=== PATIENT | female | born 1945 ===

== ENCOUNTER 2018-03-16 08:16 | Emergency (ER) | payer MEDICARE ==
[2018-03-16 08:30] VITALS: BMI 25.7
--- NOTE | 2018-03-16 09:02 | C.PDOC ---
History Of Present Illness 72 y/o female pt presents to the ER c/o rectal irritation from frequent diarrhea. Associated sx includes nausea, vomiting and diarrhea last night but has now improved. Pt reports she initially vomited, but now feels better "once food came out". Pt says she is now able to tolerate PO and denies abdominal pain, bloating and fever. NVD SINCE LAST NIGHT NOW IMPROVED. PS NOW TOLERATING PO, CO RECTAL IRRITATION FROM THE FREQ DIARRHEA. INITIALLY VOMITED FOOD, NOW CLEAR. PS FELT MUCH BETTER ONCE FOOD CAME OUT. NO ABD PAIN, BLOATING, FEVER. EXAM NAD SOFT NT ND NO R/G REMAINDER NEG Time Seen by Provider: 03/16/18 08:37 Chief Complaint (Nursing): GI Problem History Per: Patient History/Exam Limitations: no limitations Onset/Duration Of Symptoms: Days (x1) Current Symptoms Are (Timing): Better Past Medical History Reviewed: Historical Data, Nursing Documentation, Vital Signs Vital Signs: Last Vital Signs Temp 98.0 F 03/16/18 08:40 Pulse 118 H 03/16/18 08:40 Resp 20 03/16/18 08:40 BP 152/90 H 03/16/18 08:40 Pulse Ox 97 03/16/18 08:40 - Medical History PMH: Depression, HTN, Hypercholesterolemia Family History: States: No Known Family Hx - Social History Hx Alcohol Use: No Hx Substance Use: No Review Of Systems Except As Marked, All Systems Reviewed And Found Negative. Constitutional: Negative for: Fever, Other (bloating ) Gastrointestinal: Positive for: Nausea (improved), Vomiting (improved), Diarrhea (improved), Other (rectal irritation ). Negative for: Abdominal Pain Physical Exam - Physical Exam Appears: Non-toxic, No Acute Distress Skin: Warm, Dry Head: Normacephalic Eye(s): bilateral: Normal Inspection Oral Mucosa: Moist Throat: Normal Chest: Symmetrical Cardiovascular: Rhythm Regular Respiratory: Other (NARD) Gastrointestinal/Abdominal: Soft, No Tenderness, No Distention, No Guarding, No Rebound Back: No CVA Tenderness Extremity: Normal ROM (x4) Neurological/Psych: Oriented x3, Normal Speech ED Course And Treatment O2 Sat by Pulse Oximetry: 97 (RA) Pulse Ox Interpretation: Normal Disposition Counseled Patient/Family Regarding: Diagnosis, Need For Followup, Rx Given - Disposition Referrals: YOUR,PMD [Other] Disposition: HOME/ ROUTINE Disposition Time: 09:01 Condition: GOOD Prescriptions: Atropine/Diphenoxylate [Lonox 0.025 MG-2.5 MG] 1 tab PO TID PRN #12 tab PRN Reason: Diarrhea Ondansetron ODT [Zofran ODT] 4 mg PO TID PRN #12 odt PRN Reason: Nausea/Vomiting Instructions: Viral Gastroenteritis, Adult (DC) Forms: [employer]imple (Georgian) - Clinical Impression Clinical Impression: Gastroenteritis - Scribe Statement The provider has reviewed the documentation as recorded by the Isabel Johnson Do Provider Attestation: All medical record entries made by the Beltranibhair were at my direction and personally dictated by me. I have reviewed the chart and agree that the record accurately reflects my personal performance of the history, physical exam, medical decision making, and the department course for this patient. I have also personally directed, reviewed, and agree with the discharge instructions and disposition.
[2018-03-16 09:39] VITALS: BP 136/78; PULSE 99; RESP 18; TEMP 98.8; O2SAT 99
== END 2018-03-16 09:39 | disposition home or self-care (01) ==
LOC: C.ER 08:16
DX: K52.9 Noninfective gastroenteritis and colitis, unspecified (principal); E78.00 Pure hypercholesterolemia, unspecified; I10 Essential (primary) hypertension; F32.9 Major depressive disorder, single episode, unspecified